=== PATIENT | male | born 1985 | race Caucasian/White ===

== ENCOUNTER 2024-02-23 01:18 | Inpatient (IN) | payer OTHER, SELFPAY ==
[2024-02-22 20:04] VITALS: BMI 29.7
[2024-02-22 20:07] VITALS: BP 163/96
[2024-02-22 20:28] LABS: % Basophils 1.6 % (0-2); % Eosinophils 0.6 % (0-6); % Immature Granulocytes 0.7 % (0-0.5); % Lymphocytes 22.3 % (20.5-51.1); % Monocytes 3.8 % (1.7-9.3); Absolute Basophils 0.1 10^3/uL (0-0.2); Absolute Eosinophils 0.1 10^3/uL (0-0.7); Absolute Immature Granulocytes 0.1 10^3/uL (0-0.05); Absolute Lymphocytes 1.8 10^3/uL (1.2-3.4); Absolute Monocytes 0.3 10^3/uL (0.1-0.6); Absolute Neutrophils 5.9 10^3/uL (1.4-6.5); Mean Corp Hgb Conc. 35.6 g/dL (33.0-37.0); Mean Corpuscular Hgb 33.4 pg (27.0-31.0); Mean Corpuscular Volume 93.9 fL (80.0-94.0); Mean Platelet Volume 9.4 fL (7.4-10.4); Nucleated Red Blood Cells % 0 % (-); Platelet Count 302 10^3/uL (130-400); Red Blood Cell Count 4.79 10^6/uL (4.70-6.10); White Blood Cell Count 8.2 10^3/uL (4.8-10.8)
[2024-02-22 20:39] LABS: ALT (SGPT) 240 U/L (0-50); AST (SGOT) 106 U/L (17-59); Albumin 5.1 g/dl (3.5-5.0); Alcohol 246 mg/dl; Alkaline Phosphatase 96 U/L (38-126); Blood Urea Nitrogen 12 mg/dl (9-20); Calcium 9.5 mg/dl (8.4-10.2); Carbon Dioxide 17 mmol/L (22-30); Chloride 103 mmol/L (98-107); Estimated Creatinine Clearance 125 ml/min; Glucose 81 mg/dl (70-99); Potassium 4.4 mmol/L (3.5-5.1); Sodium 140 mmol/L (135-145); Total Bilirubin 0.7 mg/dl (0.2-1.3); Total Protein 7.2 g/dl (6.3-8.2); eGFR > 60.00
[2024-02-22] MEDS: PROTONIX IV 40 MG IV (20:57)
[2024-02-22] MEDS: ZOFRAN 4 MG IV (20:58)
[2024-02-22] MEDS: D5/0.9% SODIUM CHLORIDE 1000 IV (20:58)
[2024-02-22 21:00] VITALS: BP 140/86
[2024-02-22 21:03] LABS: Lipase 223 U/L (23-300)
[2024-02-22 21:23] LABS: Venous Blood Gas B.E. -3.4 mmol/L (-4 to +4); Venous Blood Gas HCO3 21.4 mmol/L (22-27); Venous Blood Gas O2 Sat % 98.6 %; Venous Blood Gas pCO2 37 mmHg (35-48); Venous Blood Gas pH 7.37 (7.32-7.43); Venous Blood Gas pO2 91 mmHg (30-50)
--- NOTE | 2024-02-22 21:48 | ED.GENMED ---
History of Present Illness
General
Chief Complaint: Alcohol Problem
Source: patient
Exam Limitations: none
Time Seen by Provider: 02/22/24 20:31
Nursing documentation reviewed up to this point in time: agreed with
Travel History
Have you had any contact with someone who has COVID-19?: No
Do you have any symptoms of coronavirus? Fever > 100 degrees, chills, cough, shortness of breath, sore throat, loss of taste or smell, muscle aches, or headache?: No
History of Present Illness
History of Present Illness:
38 y/o M with h/o alcohol dependence
drinks a fifth of vodka daily recently
in november his and children left him
he has been depressed but not suicidal
he may have had a seizure like activity 2 week ago but was no in withdrawal, witnessed by someone but he never came to the hospital
he has never otherwise had withdrawal seizure
pt says that he want detox but doesn't think he can be inpatient
he has been having upper abd pain and nausea, occ vomiting despite drinking alcohol in the past few days
he took otc prilosec or nexium
no vomiting blood
no black stool
no h/o pancreatitis
Past History
Past History
ED Past Medical History: None
Review of Systems
Review of Systems
Allergies reviewed?: Yes
All Other Systems: Not applicable
Phy Exam
Physical Exam
Physical Exam:
GENERAL: Alert ,tearful, intoxicated, alcohol on breath
EYE: pupils equal and reactive
NECK: Supple
ENT: o/p clr, mmm.
CARDIAC:tachy
LUNGS: Clear breath sounds bilaterally, no acute respiratory distress, no wheezes/rales/rhonchi
ABDOMEN: Soft, left upper abd tenderness, no r/g, no cvat, normal bowel sounds
NEUROLOGICAL: Alert and oriented, no focal neuro deficits
SKIN: Warm and dry, skin intact.
MUSCULOSKELETAL: No edema, well perfused. neg etta's sign
PSYCH: Normal and appropriate interaction.
Scores
Withdrawal Assessment of Alcohol
Withdrawal Assessment Completed?: Yes
Nausea and Vomiting: Mild nausea with no vomiting
Tactile Disturbances: None
Tremor: Not visible, but can be felt fingertip to fingertip
Auditory Disturbances: Not present
Paroxysmal Sweats: No sweat visible
Visual Disturbances: Very mild sensitivity
Anxiety: Moderately anxious, or guarded, so anxiety is inferred
Headache, Fullness in Head: Not present
Agitation: Normal activity
Orientation and clouding of sensorium: Oriented and can do serial additions
Total CIWA Score: 7
Alcohol Withdrawal Medication Recommendation: Equal to MSAS Score 0-4. Monitor & re-assess q2hrs, NO MEDICATION NEEDED
Course
Orders/Labs/Results
Orders:
Orders
02/22/24 20:12
1:1 Observation - Suicide/ Violent Behavior As Directed
02/22/24 20:17
Alcohol Urgent
Complete Blood Count/With Diff Urgent
Comprehensive Metabolic Panel Urgent
Lipase Urgent
Comment: ADD ON
02/22/24 20:46
Add On- LAB Urgent
Tests Added?: lipase
Dextrose 5%/0.9%Sodchl 1000 ml [D5/0.9% Sodium Chloride] 1,000 ml IV 1,000 mls/hr
Ondansetron Injectable [Zofran] 4 mg IV NOW STA
02/22/24 20:47
Pantoprazole [Protonix IV] 40 mg IV NOW STA
02/22/24 21:04
Venous Blood Gas Urgent
%Oxygen/Room Air: 21
02/22/24 21:25
CT Abd/Pel (IV only)-DH only Urgent
Comment:
Reason For Exam: LEFT UPPER QUAD PAIN, VOMITING, ALCOHOLISM
02/22/24 23:27
0.9% Sodium Chloride 1000 ml [Nss] 1,000 ml IV BOLUS
FOLic ACID [Folvite] 1 mg PO NOW STA
Lorazepam [Ativan] 1 mg IV NOW STA
Thiamine Injection 100 mg IV NOW STA
Abnormal Lab Results
02/22/24 02/22/24
20:17 21:04
MCH 33.4 H pg
(27.0-31.0)
Abs Immat Gran (auto) 0.1 H 10^3/uL
(0-0.05)
Immature Gran % 0.7 H %
(0-0.5)
VBG pO2 91 H mmHg
(30-50)
VBG HCO3 21.4 L mmol/L
(22-27)
Carbon Dioxide 17 L mmol/L
(22-30)
AST 106 H U/L
(17-59)
ALT 240 H U/L
(0-50)
Albumin 5.1 H g/dl
(3.5-5.0)
02/22/24 20:17
02/22/24 20:17
Vital Signs
Initial and Last Documented VS:
Initial Vital Signs
Temp Pulse Resp Pulse Ox
97.5 F 110 16 98
02/22/24 20:04 02/22/24 20:04 02/22/24 20:04 02/22/24 20:04
Last Documented Vital Signs
Temp Pulse Resp BP Pulse Ox
97.5 F 95 23 146/84 96
02/22/24 20:04 02/22/24 22:15 02/22/24 22:15 02/22/24 22:00 02/22/24 22:15
MDM/Problems Addressed
Differential Diagnosis Includes:
alcohol intoxication, alcohol dependence, anxiety, withdrawal, aka, dehydration
MDM/Problems Addressed:
38 y/o M alcoholic with n/v/upper abd pain, anxiety; presetned with alcohol level 240, depressed but not suicidal; having some upper abd tenderness, elevated LFTs, normal lipase, sludge in gb and no pancreatitis on ct;
AG 20;
received dextrose normal fluids
thiamine
folic acid
pt reassessed having mild anxiety withdrawal symptoms now
also then tells me that he has had blurred vision for about 2 days
no headache, head trauma, vision loss
he has lost 20 pounds, he isnt eating
he also thought maybe he had a seizure 2 weeks ago but this cannot be confirme,d at the time, hew as not detoxing
d/w ed attending
with AG 20, he fel tthat pt best be hydated in the hospital, monitor for widhrawal
*Critical Care Note
Total Time (30-74mins, 75-104mins- exclusive of procedures): Not Applicable
ED Attending Note
-
Portions of this chart may have been created with voice recognition software.� Occasional wrong word or��sound alike� substitutions may have occurred due to the inherent limitations of voice recognition software.
Discharge Plan
Departure
Patient Disposition: Admit
Date of Disposition: 02/22/24
Time of Disposition: 23:30
Admit to: Med/Surg
Presentation/result/management discussed w/ accepting MD/DO: Hospitalist
Condition: Fair
Covid-19: Not Applicable
Discharge Problem:
Alcoholic ketoacidosis, Transaminitis, Gastritis
Referrals:
UNKNOWN - PT DOES,NOT KNOW [Family Provider] -
Interventions
Interventions:
*Risk Screen - Suicide Last Done: 02/22/24 20:04
*General Assessment Last Done: 02/22/24 20:04
*Neglect/Abuse Screening Last Done: 02/22/24 20:04
ED- Fall Risk Assessment Last Done: 02/22/24 22:18
*ED COVID-19 Vaccine History Last Done: 02/22/24 20:04
ED- Neurological Assessment Last Done: 02/22/24 22:18
ED-Psychological Assessment Last Done: 02/22/24 22:18
Discharge Date and Time
Print Language: NICARAGUAN
[2024-02-22 22:00] VITALS: BP 146/84
[2024-02-22] MEDS: THIAMINE INJECTION 100 MG IV (23:44)
[2024-02-22] MEDS: FOLVITE 1 MG PO (23:45)
[2024-02-22] MEDS: NSS 1000 IV (23:45)
[2024-02-22] MEDS: ATIVAN 1 MG IV (23:45)
--- NOTE | 2024-02-23 00:33 | HPS.HSE ---
Family Physician
-
Family Physician: NOT KNOW UNKNOWN - PT DOES
Chief Complaint
-
Alcohol Problem
History of Present Illness
Patient is a 38y M with PMH significant for anxiety who presents to ED complaining of alcohol use disorder. Patient states that his and kids left him at the end of November. Since that time, he has been severely depressed and anxious and has
been drinking to excess. He notes that he has been drinking - on average - about 1/5th of vodka per day. About 2 weeks ago, friends told him that he had had a seizure. He does not recall the event and friends did not describe whether or not he
was shaking, incontinent, etc. Patient was actively drinking prior to this episode - so withdrawal seems unlikely. He did not seek medical attention at that time.
Patient reports that he quit drinking entirely about one week ago. He began to have shaking in his hands that was quite severe after only a day or two. He then resumed his usual EtOH intake.
Today patient notes that he was 'afraid to be at home' and that he thought 'something bad might happen' so he called his sister and presented to the ED for evaluation.
He denies any specific suicidal ideation or plan.
Patient states that he is interested in alcohol rehab - though he is not certain if he could do an inpatient program.
At the moment, it seems he mostly does not want to alone in his home due to overwhelming feelings of anxiety and depression.
Patient notes that he was previously on medication for anxiety - but he stopped taking this about 2 years ago or so.
Medical History
Past Medical History
Past Medical History: Reports Other
Additional Past Medical History:
Anxiety
Past Surgical History: Reports Other
Additional Past Surgical History:
Left Knee Arthroscopy
T&A
Social History
Tobacco: Non-smoker
Alcohol: Daily (1.5 vodka daily for at least the past 2 months.)
Drug: Marijuana (Has medical marijuana card for his anxiety.)
Personal: Other ()
Family History
Family History: Not pertinent
Allergies / Home Medications
Allergies reflects when Allergies were last updated in [employer].
Home Medications with original date entered in [employer]
Allergy/Medication List:
Allergies
Allergy/AdvReac Type Severity Reaction Status Date / Time
No Known Allergies Allergy Unverified 10/30/15 17:48
Home Medications
No Meds [No Current Medications] 02/23/24
Review of Systems
-
History Source: Patient
A 12 point ROS was completed and negative except as noted: Yes
Constitutional: Reports Weight Loss; Denies Fever or Chills
EENT: Denies Sore Throat
Respiratory: Denies Cough or Trouble Breathing
Cardiac: Denies Chest Pain or Palpitations
Abdomen/GI: Reports Abdominal Pain (Epigastric abdominal discomfort.); Denies Nausea, Vomiting or Diarrhea
: Denies Dysuria or Frequency
Musculoskeletal: Denies Joint Pain or Edema
Neurological: Denies Dizzy or Headache
Psych: Reports Depression and Anxiety
Physical Exam
Vital Signs
Vital Signs
Temp Pulse Resp BP Pulse Ox
97.5 F 95 23 146/84 96
02/22/24 20:04 02/22/24 22:15 02/22/24 22:15 02/22/24 22:00 02/22/24 22:15
Physical Exam
General: Other (38y M in mild distress due to anxiety.)
HEENT: Moist mucous membranes and PERRLA
Respiratory: Clear; No Wheezes, Rales or Rhonchi
Cardiac: S1/S2 and Regular Rhythm; No Murmur
GI: Soft, Non Tender, Non Distended and Normal Bowel Sounds
Musculoskeletal: No Clubbing, No Cyanosis and No Edema
Neuro: AO x 3 and Nonfocal/grossly intact
Psych: Anxious and Depressed
Laboratory Results
-
02/22/24 20:17
02/22/24 20:17
Laboratory Results
Total Bilirubin 0.7 mg/dl (0.2-1.3) 02/22/24 20:17
AST 106 U/L (17-59) H 02/22/24 20:17
ALT 240 U/L (0-50) H 02/22/24 20:17
Alkaline Phosphatase 96 U/L (38-126) 02/22/24 20:17
Lipase 223 U/L (23-300) 02/22/24 20:17
Impression/Plan
-
A/P: Patient is a 38y M with PMH significant for anxiety who presents to ED for evaluation of alcohol use disorder and uncontrolled anxiety.
Alcohol Use Disorder
Alcohol Intoxication
Alcoholic Ketoacidosis
- Admit for further evaluation and treatment.
- Last drink was just prior to presentation.
- Initial labs with anion gap of 20 c/w AKA.
- Thiamine given in the ED and patient started on dextrose / IVF infusion.
- Continue IVs with dextrose.
- Monitor labs / lytes and replace as needed.
- Follow for improvement / resolution of anion gap.
- Monitor for signs / symptoms of withdrawal and treat as needed with BZDs.
- Thiamine / folate / MVI replacement.
- Psychiatry evaluation for alcohol use, but also for severe uncontrolled anxiety.
- Patient outright denies suicidal ideation, but also seems fearful that 'something bad will happen' if he is left alone.
Generalized Anxiety
- Uncontrolled anxiety and recent major life event ( / kids left).
- BZDs per MSAS protocol for now.
- Psychiatry eval as noted above for other / chronic med recommendations.
Gastritis
- Likely secondary to alcohol use.
- Patient complains of recent epigastric discomfort and notes that he has been taking 'some over the counter med'. He cannot be more specific.
- PPI daily. Follow for any new complaints.
- Consider GI eval if any new / worsening symptoms.
DVT Prophylaxis: SCDs
Code Status: Full
[2024-02-23 02:49] VITALS: BP 147/89; BMI 28.3
[2024-02-23] MEDS: ATIVAN 1 MG IV ×3 (05:56→11:08)
[2024-02-23] MEDS: D5/0.9% SODIUM CHLORIDE 1000 IV ×2 (05:58→09:18)
[2024-02-23 07:00] VITALS: BP 135/86
[2024-02-23 07:49] LABS: Hematocrit 37.7 % (39.0-52.0); Hemoglobin 13.8 g/dL (13.0-18.0); Mean Corp Hgb Conc. 36.6 g/dL (33.0-37.0); Mean Corpuscular Hgb 33.3 pg (27.0-31.0); Mean Corpuscular Volume 91.1 fL (80.0-94.0); Mean Platelet Volume 9.5 fL (7.4-10.4); Platelet Count 242 10^3/uL (130-400); Red Blood Cell Count 4.14 10^6/uL (4.70-6.10); Red Cell Dist. Width 12.1 % (11.5-14.5); White Blood Cell Count 5.2 10^3/uL (4.8-10.8)
[2024-02-23 08:07] LABS: ALT (SGPT) 188 U/L (0-50); AST (SGOT) 75 U/L (17-59); Albumin 3.9 g/dl (3.5-5.0); Alkaline Phosphatase 63 U/L (38-126); Blood Urea Nitrogen 9 mg/dl (9-20); Carbon Dioxide 23 mmol/L (22-30); Chloride 103 mmol/L (98-107); Direct Bilirubin 0.3 mg/dl (0.0-0.4); Estimated Creatinine Clearance > 125 ml/min; Glucose 107 mg/dl (70-99); Phosphorus 3.2 mg/dl (2.5-4.5); Potassium 4.1 mmol/L (3.5-5.1); Sodium 136 mmol/L (135-145); Total Bilirubin 0.9 mg/dl (0.2-1.3); Total Protein 5.8 g/dl (6.3-8.2); eGFR > 60.00
[2024-02-23] MEDS: THIAMINE INJECTION 200 MG IV (08:52)
[2024-02-23] MEDS: FOLVITE 1 MG PO (08:53)
[2024-02-23] MEDS: PROTONIX IV 40 MG IV (08:53)
[2024-02-23] MEDS: NSS (PRESERVATIVE FREE) 10 ML IV (08:54)
[2024-02-23 11:00] VITALS: BP 122/82
--- NOTE | 2024-02-23 11:43 | CM ---
Patient with Dx Alcohol Use Disorder, Alcohol Intoxication, Alcoholic Ketoacidosis, Generalized Anxiety, Gastritis. MSAS. Receiving IVF, IV Ativan prn. Ambulating in room by self. Psych Consult.
Met with patient who resides alone in a 2 story house.
Patient volunteers that his and children recently left him.
The patient has been independent in ADLs and ambulation.
He has no DME or prior VN.
PCP - none
Pharmacy - [facility]
CM Consult: Substance Abuse
Offered [facility] for Eto[facility] programs/resources and patient agrees.
Patient shares that his /children left him, he stopped taking his anxiety meds & started drinking again.
Spoke with [facility] Dickerson; he met with the patient and feels that the patient is minimizing his alcohol use.
The patient told him he did [facility] program 1 year ago.
The patient reported he is currently following with an outpatient therapist from [facility] and wishes to continue.
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
Plan home.
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
--- NOTE | 2024-02-23 12:39 | W.PN.UPDATE ---
Update Note
Progress Note Update
seen by Dr. Llanos this morning.
Patient presented with feeling insecure at home with his alcohol use disorder. He apparently had a possible seizure in the last few days. He went back to drinking and is now wanting to get some help with his alcoholism.
This morning he feels better after IV fluids. He is not feeling tremulous or anxiety.
He is motivated to quit but he is anxious about doing it all himself.
He would like to go home if possible today and follow as outpatient.
Await psychiatry input. Currently no overt sympathetic activity, tremors or any other signs of withdrawal.
[2024-02-23 13:12] VITALS: BMI 28.3
--- NOTE | 2024-02-23 15:00 | PTCARENOTE ---
Dr Shin at bedside to discuss patient being discharged today. Patient is insisting that he is to be discharged today and will sign AMA forms if necessary. Dr Shin completed and signed AMA forms. Patient signed AMA forms. IV and tele pack removed.
AMA forms placed in chart.
--- NOTE | 2024-02-23 15:46 | W.PN.UPDATE ---
Update Note
Progress Note Update
Called to see patient-patient wants to leave hospital
patient states is important work commitment and has to leave for work tomorrow.
He states he feels better with fluids.
He is tolerating diet without any issues.
Feels not anxious with Ativan. No tremors.
Afebrile hemodynamically stable. Slightly tachycardic but blood pressure stable. No tremors.
Not agitated. Alert and oriented.
Used to 3 mg Ativan so far today.
Patient denies the fact of seizure. He said that couple of weeks ago he was with his friends and was having an argument with a female friend and and it was very intense. He thought he actually had more breakdown . He was alert oriented. He
could hear her friend saying everything is okay. In fact he was having a drink at that time. So I doubt he had a seizure Based on this history.
Patient was explained about mild withdrawal ongoing symptoms tachycardia though he is no full-blown sympathetic or activity. He could progress into full-blown withdrawal which can put him to delirium tremors and seizures which could risk his
life. He understands this. He still wants to go because he has to keep up his work commitment.
we agreed upon Ativan taper. He was advised not to drive on Ativan taper. If the symptoms were to get worse he would come back to the hospital.
Psychiatry input noted-they are not comfortable starting on any antidepressants or antianxiety medicine during the time of withdrawal.
DC AMA
--- NOTE | 2024-02-23 15:56 | W.DS.TRANS ---
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
-
Discharge Instructions:
Discharge Diagnosis/Procedures Alcohol use disorder with mild withdrawal;
anxiety
Diet Regular
Activity As tolerated
Driving Restrictions while on ativan
Bathing Restrictions None
Instructions:
Stand-Alone Forms:
Changes to Home Medications: Yes
Discharge Medications:
DC Medications w/original date entered in [employer]
lorazepam 1 mg tablet (Ativan) 1 mg PO DIRECTED #12 tabs 02/23/24
Home Medication Changes
New med -ativan taper
Pending Results: No
== END 2024-02-23 15:05 | disposition left against medical advice (07) | DRG 894 ==
LOC: 4 WEST ACU 01:18
PROVIDERS: Physician Assistant; ADMITTING PHYSICIAN Hospitalist; ATTENDING PHYSICIAN Internal Medicine; CONSULT PHYSICIAN Psychiatry & Neurology Psychiatry; EMERGENCY PHYSICIAN Emergency Medicine
DX: F10.230 Alcohol dependence with withdrawal, uncomplicated (principal); E87.29 Other acidosis; F32.A Depression, unspecified; F12.90 Cannabis use, unspecified, uncomplicated; F10.120 Alcohol abuse with intoxication, uncomplicated; Y90.8 Blood alcohol level of 240 mg/100 ml or more; F41.1 Generalized anxiety disorder; K29.20 Alcoholic gastritis without bleeding; F43.22 Adjustment disorder with anxiety; Z53.29 Procedure and treatment not carried out because of patient's decision for other reasons
CPT/HCPCS: 74177; 80048; 80053; 80076; 82077; 82805; 83690; 83735; 84100; 85025; 85027; 93005; 96361; 96365; 96375; 99285; Q9967